=== PATIENT | female | born 1960 | race Two or more races ===

== ENCOUNTER 2018-04-29 21:10 | Emergency (ER) | payer OTHER ==
[~2018-04-29] VITALS: Ht 160 cm; Wt 68.6 kg
[2018-04-29 21:14] VITALS: BP 140/76
[2018-04-29] MEDS ORDERED: ACETAMINOPHEN 325 MG TABLET ONE (21:39)
[2018-04-29] MEDS ORDERED: ACETAMINOPHEN 325 MG TABLET PO ONE (22:00)
== END 2018-04-29 23:05 | disposition home or self-care (01) ==
LOC: ED 22:59
DX: S62.616A Displaced fracture of proximal phalanx of right little finger, initial encounter for closed fracture (principal); W22.03XA Walked into furniture, initial encounter; Y93.E3 Activity, vacuuming; Y92.89 Other specified places as the place of occurrence of the external cause; Y99.8 Other external cause status
CPT/HCPCS: 29130; 99284

== ENCOUNTER 2018-04-30 18:50 | Emergency (ER) | payer OTHER ==
[~2018-04-30] VITALS: Ht 160 cm; Wt 69.3 kg
[2018-04-30 18:55] VITALS: BP 126/75
[2018-04-30] MEDS ORDERED: BUPIVACAINE 0.25% ONE (19:17)
[2018-04-30] MEDS ORDERED: OXYcodone/APAP 5/325MG TABLET ONE (19:19)
[2018-04-30] MEDS ORDERED: OXYcodone/APAP 5/325MG TABLET PO ONE (19:30)
[2018-04-30] MEDS ORDERED: BUPIVACAINE 0.25% INFIL ONE (19:30)
== END 2018-04-30 21:48 | disposition home or self-care (01) ==
LOC: ED 21:45
DX: S62.616A Displaced fracture of proximal phalanx of right little finger, initial encounter for closed fracture (principal); X58.XXXA Exposure to other specified factors, initial encounter; Y93.89 Activity, other specified; Y99.8 Other external cause status; Y92.009 Unspecified place in unspecified non-institutional (private) residence as the place of occurrence of the external cause
CPT/HCPCS: 29125; 99284